=== PATIENT | female | born 1985 | race African-American/Black ===

== ENCOUNTER 2023-05-04 11:57 | Emergency (ER) | payer OTHER ==
[~2023-05-04] VITALS: Ht 165.1 cm; Wt 63.5 kg
[2023-05-04 12:08] VITALS: BP 107/66; PULSE 84; RESP 18; TEMP 98; O2SAT 98
[2023-05-04] MEDS ORDERED: DEXAMETHASONE 10 MG/ML VIAL IM ONE (13:00)
[2023-05-04] MEDS ORDERED: IBUPROFEN 600 MG TAB PO ONE (13:00)
[2023-05-04 13:26] LABS: APPEARANCE,URINE CLEAR (CLEAR); BILIRUBIN,URINE NEGATIVE (NEGATIVE); BLOOD, URINE NEGATIVE (NEGATIVE); COLOR,URINE YELLOW (YELLOW); LEUKOCYTE ESTERASE ,URINE NEGATIVE (NEGATIVE); NITRITE, URINE NEGATIVE (NEGATIVE); PROTEIN,URINE TRACE (NEGATIVE); UGLUCOSE NEGATIVE (NEGATIVE); UROBILINOGEN,URINE 0.2 EU/dL (0.2 - 1)
[2023-05-04 13:29] LABS: RBC,URINE 0-5 /HPF (0-5)
[2023-05-04 13:30] LABS: BACTERIA,URINE 0-2 /HPF (None Seen); MUCUS,URINE None Seen /LPF (None Seen); SQUAMOUS EPITHELIAL CELL,UR 0-3 (FEW) /LPF (0-3 (FEW)); WBC,URINE 0-5 /HPF (0-5); YEAST,URINE None Seen /HPF (None Seen)
[2023-05-04] MEDS ORDERED: ACET-10509 PO (13:59)
[2023-05-04] MEDS ORDERED: IBUP-2213 PO (13:59)
[2023-05-04] MEDS ORDERED: BENZ-300 PO (13:59)
[2023-05-04 14:36] LABS: FLU A ANTIGEN negative (NEGATIVE); FLU B ANTIGEN negative (NEGATIVE)
== END 2023-05-04 14:15 | disposition home or self-care (01) ==
LOC: MED 11:57
DX: J02.8 Acute pharyngitis due to other specified organisms (principal); Z20.822 Contact with and (suspected) exposure to COVID-19; B97.89 Other viral agents as the cause of diseases classified elsewhere; Z79.899 Other long term (current) drug therapy
CPT/HCPCS: 81001; 81025; 87081; 87426; 87804; 96372; 99283; J1100

== ENCOUNTER 2023-08-14 12:57 | Emergency (ER) | payer OTHER ==
[~2023-08-14] VITALS: Ht 160 cm; Wt 58.1 kg
[~2023-08-14 12:57] MED LIST: ACET-10509 PO; BENZ-300 PO; IBUP-2213 PO
[2023-08-14 13:20] VITALS: BP 112/67; PULSE 84; RESP 16; TEMP 98.1; O2SAT 98
[2023-08-14 15:19] LABS: FLU A ANTIGEN negative (NEGATIVE); FLU B ANTIGEN NEGATIVE (NEGATIVE)
[2023-08-14] MEDS ORDERED: IBUP-2213 PO (15:22)
[2023-08-14] MEDS ORDERED: ACET-10509 PO (15:22)
== END 2023-08-14 15:32 | disposition home or self-care (01) ==
LOC: MED 12:57
DX: J06.9 Acute upper respiratory infection, unspecified (principal); Z20.822 Contact with and (suspected) exposure to COVID-19; Z79.899 Other long term (current) drug therapy
CPT/HCPCS: 87081; 99283